=== PATIENT | male | born 1970 | race Hispanic/Latino ===

== ENCOUNTER 2021-09-07 05:48 | Emergency (ER) | payer SELFPAY ==
[~2021-09-07] VITALS: Ht 165.1 cm; Wt 74.8 kg
[2021-09-07] MEDS ORDERED: KETOROLAC 30MG VIAL (30MG/ML) IVP ONE (06:00)
[2021-09-07] MEDS ORDERED: 0.9%NACL 1000ML 1,000 ML IV ONE ×2 (06:00→08:06)
[2021-09-07] MEDS ORDERED: ONDANSETRON 4MG INJ IVP ONE ×2 (06:00→07:30)
[2021-09-07 06:21] LABS: BASOPHILS % (AUTO) 0.8 % (0.0-5.0); EOSINOPHILS % (AUTO) 2.7 % (0.0-8.0); HEMATOCRIT 43.4 % (42-54); LYMPHOCYTES % (AUTO) 48.7 % (21.0-51.0); MEAN CORPUSCULAR HEMOGLOBIN 31.1 pg (27.0-33.0); MEAN CORPUSCULAR VOLUME 88.8 fL (79-99); MONOCYTES % (AUTO) 6.6 % (3.0-13.0); NEUTROPHILS % (AUTO) 40.8 % (40.0-77.0); PLATELET COUNT (AUTO) 211 K/uL (130-400); RED BLOOD CELL COUNT(AUTO) 4.89 MIL/uL (4.50-6.20); RED CELL DISTRIBUTION WIDTH 12.4 % (11.0-15.5); WHITE BLOOD COUNT (AUTO) 7.5 K/uL (4.8-10.8)
[2021-09-07 06:42] LABS: CREATININE 1.3 mg/dL (0.5-1.5); POTASSIUM 3.6 mmol/L (3.5-5.1)
[2021-09-07 06:47] LABS: BILIRUBIN,TOTAL 0.5 mg/dL (0.2-1.0); TOTAL PROTEIN, SERUM 7.9 g/dL (6.0-8.3)
[2021-09-07] MEDS ORDERED: ZOSYN 3.375GM+NS 50ML 3.38 GM in 0.9%NACL 50ML 50 ML IV SCH (07:30)
[2021-09-07] MEDS ORDERED: MORPHINE 4 MG SYG IV ONE (07:30)
[2021-09-07] MEDS ORDERED: ZOSYN 3.375GM+NS 50ML 50 ML IV SCH (08:00)
[2021-09-07] MEDS ORDERED: 0.9%NACL 50ML 50 ML IV ONE (08:09)
[2021-09-07 08:47] LABS: APPEARANCE,URINE Clear (CLEAR); BILIRUBIN,URINE Negative (NEGATIVE); COLOR,URINE Yellow (YELLOW); GLUCOSE, URINE (UA) Negative (NEGATIVE); KETONES,URINE Negative (NEGATIVE); LEUKOCYTE ESTERASE ,URINE Small (NEGATIVE); NITRATE,URINE Negative (NEGATIVE); OCCULT BLOOD,URINE Negative (NEGATIVE); PH,URINE 5.5 (5.0-8.0); PROTEIN,URINE Negative (NEGATIVE)
[2021-09-07 09:01] LABS: BACTERIA,URINE Moderate /HPF (None Seen)
[2021-09-07 09:02] LABS: SQUAMOUS EPITHELIAL CELL,UR Rare /HPF (0-2)
[2021-09-07 09:14] VITALS: BP 114/72
[2021-09-07] MEDS ORDERED: DICL35CA3 PO (10:02)
[2021-09-07] MEDS ORDERED: TAMS-1 PO (10:02)
== END 2021-09-07 10:11 | disposition home or self-care (01) ==
LOC: EDH 05:48
DX: N23 Unspecified renal colic (principal); R11.10 Vomiting, unspecified; Z79.1 Long term (current) use of non-steroidal anti-inflammatories (NSAID); Z79.899 Other long term (current) drug therapy
CPT/HCPCS: 36415; 74176; 80053; 81001; 85025; 87088; 96361; 96365; 96366; 96375; 99284; J1885; J2405; J2543 ×2; J7030

== ENCOUNTER 2021-12-23 20:01 | Emergency (ER) | payer OTHER ==
[~2021-12-23] VITALS: Ht 167.6 cm; Wt 77.1 kg
[~2021-12-23 20:01] MED LIST: DICL35CA3 PO; TAMS-1 PO
[2021-12-23 20:28] LABS: BASOPHILS % (AUTO) 0.2 % (0.0-5.0); HEMATOCRIT 46.2 % (42-54); MEAN CORPUSCULAR HEMOGLOBIN 30.4 pg (27.0-33.0); MEAN CORPUSCULAR HGB CONC 35.5 g/dL (32.0-36.0); MEAN CORPUSCULAR VOLUME 85.6 fL (79-99); MONOCYTES % (AUTO) 8.5 % (3.0-13.0); NEUTROPHILS % (AUTO) 53.9 % (40.0-77.0); PLATELET COUNT (AUTO) 149 K/uL (130-400); RED CELL DISTRIBUTION WIDTH 11.7 % (11.0-15.5); WHITE BLOOD COUNT (AUTO) 5.1 K/uL (4.8-10.8)
[2021-12-23] MEDS ORDERED: ACETAMINOPHEN 500 MG TABLET PO ONE (20:30)
[2021-12-23] MEDS ORDERED: IBUPROFEN 800 MG TAB PO ONE (20:30)
[2021-12-23 20:42] LABS: POTASSIUM 3.8 mmol/L (3.5-5.1)
[2021-12-23 20:55] LABS: ALBUMIN 4.3 g/dL (3.5-5.0); BILIRUBIN,TOTAL 0.9 mg/dL (0.2-1.0); CREATININE 1.1 mg/dL (0.5-1.5); CRP QUANTITATIVE 6.1 mg/L (0.00-9.0); TOTAL PROTEIN, SERUM 8.7 g/dL (6.0-8.3)
[2021-12-23] MEDS ORDERED: LIDOCAINE HCL-MPF 1% 2ML VIAL ONE (21:00)
[2021-12-23] MEDS ORDERED: AZITHROMYCIN 250 MG TABLET PO ONE (21:00)
[2021-12-23] MEDS ORDERED: CEFTRIAXONE 1G VIAL IM ONE (21:00)
[2021-12-23] MEDS ORDERED: ALBUTEROL INHALER 90MCG/INH IH PRN (21:00)
[2021-12-23] MEDS ORDERED: D-ME1POW16 PO (21:16)
[2021-12-23] MEDS ORDERED: NIRM1TAB PO (21:16)
[2021-12-23] MEDS ORDERED: AMOX-429 PO (21:16)
[2021-12-23] MEDS ORDERED: ALBU8.5H8 IH (21:16)
[2021-12-23] MEDS ORDERED: IBUP-1552 PO (21:16)
[2021-12-23 21:22] VITALS: BP 125/87
== END 2021-12-23 21:38 | disposition home or self-care (01) ==
LOC: EDH 20:01
DX: U07.1 COVID-19 (principal); J12.82 Pneumonia due to coronavirus disease 2019; Z79.1 Long term (current) use of non-steroidal anti-inflammatories (NSAID)
CPT/HCPCS: 36415; 71045; 80053; 85025; 86140; 87635; 87804 ×2; 96372; 99284; C9803; J0696; J3490

== ENCOUNTER 2025-05-10 05:01 | Emergency (ER) | payer SELFPAY ==
[~2025-05-10] VITALS: Ht 162.6 cm; Wt 81.2 kg
[~2025-05-10 05:01] MED LIST changes: +ALBU8.5H8 IH; +AMOX-429 PO; +D-ME1POW16 PO; +IBUP-1552 PO; +NIRM1TAB PO; -TAMS-1 PO; +TAMS-55 PO
[2025-05-10 05:24] LABS: ADD UA MICROSCOPIC NO; APPEARANCE,URINE CLEAR (CLEAR); BILIRUBIN,URINE NEGATIVE (NEGATIVE); COLOR,URINE LIGHT-YELLOW (YELLOW); GLUCOSE, URINE (UA) NEGATIVE (NEGATIVE); KETONES,URINE NEGATIVE (NEGATIVE); LEUKOCYTE ESTERASE ,URINE NEGATIVE Leu/uL (NEGATIVE); NITRATE,URINE NEGATIVE (NEGATIVE); OCCULT BLOOD,URINE NEGATIVE (NEGATIVE); PH,URINE 5.5 (5.0-8.0); PROTEIN,URINE NEGATIVE (NEGATIVE); UROBILINOGEN,URINE 0.2 mg/dL (0.2-1.0)
[2025-05-10 05:36] LABS: BASOPHILS # (AUTO) 0.05 K/uL (0.00-0.20); BASOPHILS % (AUTO) 0.8 % (0.0-5.0); EOSINOPHILS # (AUTO) 0.13 K/uL (0.00-0.70); EOSINOPHILS % (AUTO) 2.1 % (0.0-8.0); HEMATOCRIT 43.3 % (42-54); IMMATURE GRANULOCYTE ABSOLUTE 0.02 K/uL (0-1); LYMPHOCYTES # (AUTO) 2.6 K/uL (1.0-4.8); LYMPHOCYTES % (AUTO) 41.3 % (21.0-51.0); MEAN CORPUSCULAR HEMOGLOBIN 31.6 pg (27.0-33.0); MEAN CORPUSCULAR HGB CONC 35.8 g/dL (32.0-36.0); MEAN CORPUSCULAR VOLUME 88.2 fL (79-99); MONOCYTES # (AUTO) 0.5 K/uL (0.1-1.0); MONOCYTES % (AUTO) 8.5 % (3.0-13.0); NEUTROPHILS # (AUTO) 2.9 K/uL (1.8-7.7); PLATELET COUNT (AUTO) 120 K/uL (130-400); RED BLOOD CELL COUNT(AUTO) 4.91 MIL/uL (4.50-6.20); RED CELL DISTRIBUTION WIDTH 13.4 % (11.0-15.5); WHITE BLOOD COUNT (AUTO) 6.2 K/uL (4.8-10.8)
[2025-05-10 05:46] LABS: CREATININE 0.9 mg/dL (0.5-1.3); POTASSIUM 4.1 mmol/L (3.5-5.1)
[2025-05-10] MEDS: LACTATED RINGERS 1000ML IV STA (06:02)
--- NOTE | 2025-05-10 06:07 | ERN ---
General Chief Complaint: Flank Pain Stated Complaint: FLANK PAIN Time Seen by MD: 05:32 Source: patient History of Present Illness Initial Comments Patient here because of left flank pain that reminds him of the pain he had with prior kidney stones. Also he has hematuria. He comes in now because he is planning a long road trip and wants to make sure things are okay before he leaves. No nausea or vomiting no change in bowel habits no fevers or chills. Allergies: Coded Allergies: No Known Drug Allergies (Unverified Allergy, Unknown, 09/07/21) Home Meds Active Scripts Ibuprofen (Ibu) 400 Mg Tablet, 800 MG PO TID, #45 TAB Prov:DENA STERLING 12/23/21 D-Methorphan/PE/Acetaminophen (Theraflu Ms Severe Cold Pckt) 1 Each Powd.pack, 1 EACH PO QIDP, #20 PACK Prov:DENA STERLING 12/23/21 Albuterol Sulfate (Proair Hfa) 8.5 Gm Hfa.aer.ad, 2 PUFF IH QIDP, #1 INHALER Prov:DENA STERLING 12/23/21 Nirmatrelvir/Ritonavir (Paxlovid Co-Pack (Eua)) 1 Each Tablet, 1 EACH PO BID for 5 Days, #10 TAB Prov:DENA STERLING 12/23/21 Amoxicillin/Potassium Clav (Augmentin 875-125 Tablet) 1 Each Tablet, 1 TAB PO BID for 10 Days, #20 TAB 0 Refills Prov:DENA STERLING 12/23/21 Diclofenac Submicronized (Diclofenac) 35 Mg Capsule, 50 MG PO TID, #30 CAP Prov:EILEEN TRAN MD 09/07/21 Tamsulosin HCl (Flomax) 0.4 Mg Cap.er.24h, 0.4 MG PO DAILY, #30 CAPSULE. Prov:EILEEN TRAN MD 09/07/21 Past Medical History Past Medical History: No Pertinent History, Other Medical History Other: KIDNEY STONES Past Surgical History: None Constitutional: (-) chills, (-) diaphoresis, (-) fever, (-) malaise, (-) weakness, (-) other documentation EENTM: (-) eye pain, (-) blurred vision, (-) tearing, (-) double vision, (-) ear pain, (-) ear discharge, (-) nose pain, (-) nose congestion, (-) throat pain, (-) Throat swelling, (-) mouth pain, (-) tooth pain, (-) mouth swelling, (-) other documentation Respiratory: (+) cough, (+) orthopnea, (+) short of breath, (+) stridor, (+) wheezing, (+) other documentation Cardiovascular: (-) chest pain, (-) edema, (-) palpitations, (-) syncope, (-) dyspnea on exertion, (-) other documentation Gastrointestinal/Abdominal: (-) nausea, (-) vomiting, (-) diarrhea, (-) abdominal pain, (-) abdominal distention, (-) constipation, (-) rectal bleeding, (-) dark stool/melena, (-) other documentation Musculoskeletal: (+) Flank Pain Skin: (-) laceration, (-) contusion, (-) abrasion, (-) abscess, (-) rash, (-) change in color, (-) change in hair, (-) change in nails, (-) diaphoresis, (-) dryness, (-) other documentation Physical Exam General Appearance: (+) no apparent distress Orientation: (+) alert, (+) oriented x 3 Head/Face Trauma: No Eye: bilateral eye normal inspection, bilateral eye PERRL, bilateral eye EOMI Ear, Nose, Throat: (+) hearing grossly normal, (+) normal ENT inspection, (+) moist mucous membraine Neck: (+) normal inspection, (+) supple, (+) full range of motion, (+) no JVD Respiratory: (+) chest non-tender, (+) lungs clear, (+) well ventilated Heart: (+) regular, (+) no gallop Vascular: (+) no edema, (+) normal peripheral pulse, (+) no JVD Gastrointestinal: (+) soft, (+) non-tender, (+) bowel sound present Results Laboratory and Microbiology Lab and Micro Result Laboratory Tests Test 05/10/25 05:16 05/10/25 05:27 Urine Color LIGHT-YELLOW (YELLOW) Urine Appearance CLEAR (CLEAR) Urine pH 5.5 (5.0-8.0) Urine Specific [place] 1.023 (1.001-1.031) Urine Protein NEGATIVE mg/dL (NEGATIVE) Urine Glucose (UA) NEGATIVE mg/dL (NEGATIVE) Urine Ketones NEGATIVE mg/dL (NEGATIVE) Urine Occult Blood NEGATIVE (NEGATIVE) Urine Nitrate NEGATIVE (NEGATIVE) Urine Bilirubin NEGATIVE mg/dL (NEGATIVE) Urine Urobilinogen 0.2 mg/dL (0.2-1.0) Urine Leukocyte Esterase NEGATIVE Filomena/uL White Blood Count 6.2 K/uL (4.8-10.8) Red Blood Count 4.91 MIL/uL (4.50-6.20) Hemoglobin 15.5 g/dL (14.0-18.0) Hematocrit 43.3 % (42-54) Mean Corpuscular Volume 88.2 fL (79-99) Mean Corpuscular Hemoglobin 31.6 pg (27.0-33.0) Mean Corpuscular Hemoglobin Concent 35.8 g/dL (32.0-36.0) Red Cell Distribution Width 13.4 % (11.0-15.5) Platelet Count 120 K/uL (130-400) L Mean Platelet Volume 10.5 fL (7.5-10.5) Immature Granulocyte % (Auto) 0.3 % (0-1) Neutrophils (%) (Auto) 47.0 % (40.0-77.0) Lymphocytes (%) (Auto) 41.3 % (21.0-51.0) Monocytes (%) (Auto) 8.5 % (3.0-13.0) Eosinophils (%) (Auto) 2.1 % (0.0-8.0) Basophils (%) (Auto) 0.8 % (0.0-5.0) Neutrophils # (Auto) 2.9 K/uL (1.8-7.7) Lymphocytes # (Auto) 2.6 K/uL (1.0-4.8) Monocytes # (Auto) 0.5 K/uL (0.1-1.0) Eosinophils # (Auto) 0.13 K/uL (0.00-0.70) Basophils # (Auto) 0.05 K/uL (0.00-0.20) Absolute Immature Granulocyte (auto 0.02 K/uL (0-1) Nucleated Red Blood Cells 0.0 % (0.0-0.19) Sodium Level 140 mmol/L (136-145) Potassium Level 4.1 mmol/L (3.5-5.1) Chloride Level 104 mmol/L (101-111) Carbon Dioxide Level 29 mmol/L (21-32) Blood Urea Nitrogen 12 mg/dL (7-18) Creatinine 0.9 mg/dL (0.5-1.3) Glomerular Filtration Rate Calc 101 mL/min (>90) Random Glucose 100 mg/dL (70-105) Total Calcium 8.8 mg/dL (8.5-10.1) Total Bilirubin 0.8 mg/dL (0.2-1.0) Direct Bilirubin 0.2 mg/dL (0.0-0.3) Aspartate Amino Transf (AST/SGOT) 45 U/L (10-37) H Alanine Aminotransferase (ALT/SGPT) 41 U/L (12-78) Alkaline Phosphatase 142 U/L (50-136) H Total Protein 8.3 g/dL (6.0-8.3) Albumin 3.9 g/dL (3.5-5.0) Lipase 112 U/L (16-77) H Labs Reviewed?: Yes EKG/XRAY/US/CT/MRI CT Scan Comment ct abd & pelvis- The urinary bladder is only partial distended but grossly normal, the kidneys are normal, what may reflect nodular hepatic cirrhosis noted, the spleen, pancreas, adrenal glands are normal, the small amount of layering hyperdense material in the gallbladder may reflect stones or sludge. The appendix small and large bowel are normal. MDM Given patient's symptoms and past medical history I think it is reasonable to start with the assumption that he has nephrolithiasis. We have ordered a CT scan when it without contrast a UA in the usual labs. MDM: Differential diagnosis: Kidney stone, GERD, gastritis, Rationale: Tests considered and ordered secondary to shared decision making include: Previous outside records reviewed: Old ER visits. Risk of complication and/or morbidity or mortality of patient management: None Medications-Per medication reconciliation Need for hospitalization: Patient does not meet criteria for hospitalization. Patient is a 54-year-old gentleman coming in to be evaluated for right flank pain. Per patient the pain began on Saturday and shortly after that subsided. He states he has been drinking water since then. CT did not disclose acute findings. Patient has not had any discomfort since then. I did advise him on liver enzyme elevation in the possibility of having fatty liver as well as sludge in the gallbladder. On physical exam there is no tenderness in the right upper quadrant area. I did advised him appropriate follow up with PCP in 1-2 days. ED Course Orders Procedure Category Date Status Time Cbc With Differential LAB 05/10/25 Complete 05:08 Basic Metabolic Panel LAB 05/10/25 Complete 05:08 Urinalysis Profile LAB 05/10/25 Complete 05:08 Urinalysis Profile LAB 05/10/25 Logged 05:32 Ct Abdomen/Pelvis CT 05/10/25 Taken W/Wo Contras 05:32 Lactated Ringers PHA 05/10/25 Complete 1000ml (Lactated 05:32 Iohexol (Omnipaque) PHA 05/10/25 Complete 06:23 Hepatic Function Panel LAB 05/10/25 Complete 08:15 Lipase LAB 05/10/25 Complete 08:15 Current Medications Medications (Trade) Dose Ordered Sig/Sera Route PRN Reason Start Time Stop Time Status Last Admin Dose Admin Iohexol (Omnipaque) 75 ml STK-MED ONCE IV 05/10/25 06:23 05/10/25 06:23 DC Lactated Ringer's (Lactated Ringers 1000ml) 1,000 ml BOLUS STAT IV 05/10/25 05:32 05/10/25 05:40 DC 05/10/25 06:02 Vital Signs Date Time Temp Pulse Resp B/P (MAP) Pulse Ox O2 Delivery O2 Flow Rate FiO2 05/10/25 08:26 97.9 68 20 131/87 95 Room Air* 0 21 05/10/25 07:29 97.9 81 20 130/87 98 Room Air* 0 21 05/10/25 06:28 98.2 83 16 123/71 99 Room Air* 0 21 05/10/25 05:03 98.6 92 18 146/99 99 Room Air 05/10/25 05:03 98.4 93 18 146/98 98 Room Air* 0 21 DX & DISP Disposition: Discharge Departure Impression: Primary Impression: Renal colic Condition: Stable Additional Instructions: FOLLOW-UP WITH PRIMARY CARE PROVIDER IN 1 TO 2 DAYS. TAKE MEDICATIONS DIRECTED HERE IN THE EMERGENCY ROOM. OKAY TO CONTINUE HOME MEDICATIONS UNLESS OTHERWISE DISCUSSED DURING YOUR VISIT IN THE EMERGENCY ROOM TODAY. RETURN TO YOUR NEAREST EMERGENCY ROOM IF SYMPTOMS WORSEN OR IF THERE IS NO IMPROVEMENT. CALL 911 IF YOU NEED IMMEDIATE ASSISTANCE. TAKE TYLENOL [id number] NEEDED AND IF NO CONTRAINDICATIONS ARE PRESENT. INCREASE ORAL HYDRATION. A WOUND CULTURE OR URINE CULTURE WAS ORDERED HERE IN THE EMERGENCY ROOM DEPARTMENT PLEASE FOLLOW-UP WITH PRIMARY CARE PROVIDER AND ADVISE THEM TO GET REPORTS FROM OUR FACILITY. IF YOU HAD ANY VALERIA WRAP/SPLINTS THAT WERE APPLIED HERE, PLEASE DO NOT REMOVE THEM UNTIL YOU SEE YOUR PRIMARY CARE OR SPECIALTY. Referrals: Referrals: SELF,REFERRAL (PCP) ERLIN CASTELLANO MD, LUIS A MD Time of Disposition: 09:02 MORALES GONCALVES MD May 10, 2025 06:07 BERYL TREVINO MD May 10, 2025 08:15
[2025-05-10] MEDS ORDERED: IOHEXOL-350 75 ML VIAL IV ONE (06:23)
[2025-05-10 08:26] VITALS: BP 131/87; PULSE 68; RESP 20; TEMP 97.9; O2SAT 95
[2025-05-10 08:38] LABS: ALBUMIN 3.9 g/dL (3.5-5.0); BILIRUBIN,DIRECT 0.2 mg/dL (0.0-0.3); BILIRUBIN,TOTAL 0.8 mg/dL (0.2-1.0); TOTAL PROTEIN, SERUM 8.3 g/dL (6.0-8.3)
--- NOTE | 2025-05-10 09:32 | HMCIMG ---
CT ABDOMEN/PELVIS W/WO CONTRAS HISTORY: Hematuria COMPARISON: None TECHNIQUE: Multiple sequential axial images of the abdomen and pelvis were obtained from the dome of the diaphragm through symphysis pubis. Patient was given 75 cc of Omnipaque through intravenous route. Oral contrast was not given. FINDINGS: No pleural effusion is seen bilaterally. There is no evidence of parenchymal disease or pulmonary nodule of the visualized lower lungs. Degenerative changes of the thoracolumbar spine are present. The heart is not enlarged. There is nodular cirrhosis. Gallstones and sludge material are seen in the gallbladder. Spleen, adrenal glands and pancreas are unremarkable. There is no evidence of hydronephrosis bilaterally. No evidence of renal stone is seen. Fecal material is seen in the colon. There are normal size retroperitoneal and mesenteric lymph nodes. No ascites is seen. No CT evidence of acute appendicitis is seen. Pelvic sidewalls are symmetric bilaterally. Bladder is partially distended. IMPRESSION: 1. Cirrhotic liver. Gallstones and sludge material are seen in the distended gallbladder. CT was performed with one or more following dose reduction techniques: automated exposure control, adjustment of the mA and kv according to patient's size, or use of a iterative reconstruction technique.
== END 2025-05-10 09:27 | disposition home or self-care (01) ==
LOC: EDH 05:01
DX: N23 Unspecified renal colic (principal); Z79.1 Long term (current) use of non-steroidal anti-inflammatories (NSAID)
CPT/HCPCS: 99285; 74178; 96360; 80076; 80048; 83690; 85025; 81003; 36415; J7120; Q9967